=== PATIENT | male | born 1960 | race Caucasian/White ===

== ENCOUNTER → 2020-09-05 | Day surgery (SDC) | payer OTHER ==
[~2020-09-05] MED LIST: ASCORBIC ACID500 MG PO; ASPIRIN EC81 MG PO; GLUCOPHAGE500 MG PO; LIPITOR 10MG TA10 MG PO; LOVAZA1 GM PO; MEN'S MULTIVIT1 EACH PO; NEURONTIN800 MG PO; PERCOCET 5-3251 EACH PO; SUPER B WITH V1 EACH PO; VITAMIN B-121000 MC1 PO; VITAMIN D350 MC6 PO
[2020-09-05 09:18] LABS: HCT 41.3 % (42.0-52.0); HGB 13.6 g/dl (13.2-18.0); MCH 31.3 pg (25.0-31.0); MCHC 32.9 g/dL (32.0-36.0); MCV 95.2 fL (78.0-100.0); MPV 11.4 fL (6.0-9.5); RBC 4.34 M/uL (4.70-6.00); RDW 13.2 % (11.5-14.0); WBC 5.8 K/uL (4.0-10.5)
[2020-09-05 10:25] LABS: ALBUMIN 3.8 g/dL (3.4-5.0); BILIRUBIN - TOTAL 0.2 mg/dL (0.2-1.0); BUN/CREAT RATIO (CALC) 21.7 RATIO; CREATININE 0.6 mg/dL (0.67-1.17); GLOBULIN (CALCULATION) 3.5 g/dL; POTASSIUM 4.3 mmol/L (3.5-5.1); TOTAL PROTEIN 7.3 g/dL (6.4-8.2)
== END | disposition home or self-care (01) ==
LOC: FAS 08:03
PROVIDERS: Orthopaedic Surgery
DX: M75.122 Complete rotator cuff tear or rupture of left shoulder, not specified as traumatic (principal); M19.012 Primary osteoarthritis, left shoulder; M75.52 Bursitis of left shoulder; S46.212A Strain of muscle, fascia and tendon of other parts of biceps, left arm, initial encounter; F17.210 Nicotine dependence, cigarettes, uncomplicated; M75.101 Unspecified rotator cuff tear or rupture of right shoulder, not specified as traumatic; E11.9 Type 2 diabetes mellitus without complications; I45.10 Unspecified right bundle-branch block; N20.0 Calculus of kidney; Z79.82 Long term (current) use of aspirin
CPT/HCPCS: 36415; 71045; 80053; 82962; 83036; 93005; C1713; J0171; J0690; J0735; J1100; J2250; J2370; J2405; J2704; J2710; J2795; J3010; J7120